=== PATIENT | female | born 1965 | race Caucasian/White ===

== ENCOUNTER 2019-06-09 03:48 | Inpatient (IN) | payer BC ==
[~2019-06-09] VITALS: Ht 167.6 cm; Wt 62.2 kg
[2019-06-09] VITALS (15 sets, daily range): BP systolic 101–148; BP diastolic 54–76
--- NOTE | 2019-06-09 03:45 | NUR ---
Patient admitted to room 424. Patient alert and oriented x 4. No family at bedside with Patient. Patient verbalized understanding of Orientation to room, bed, call light, phone and Plan of care. Call light in reach. See admission assessment/documentation.
[2019-06-09] MEDS ORDERED: DULO60CA6 PO (04:22)
[2019-06-09] MEDS ORDERED: GAB (04:23)
[2019-06-09] MEDS ORDERED: chlordiazePOXIDE HCL 25 MG CAPSULE PO SCH (05:15)
[2019-06-09] MEDS ORDERED: ONDANSETRON PF 4 MG/2 ML VIAL. IVP PRN (05:15)
[2019-06-09] MEDS: IV NORMAL SALINE 1000ML BAG 1,000 ML IV SCH ×3 (05:30→23:59)
--- NOTE | 2019-06-09 05:40 | NUR ---
Consult for Dr. Petit called to service, message left with Mihir.
[2019-06-09] MEDS ORDERED: LORazepam 1 MG TABLET PO SCH (06:00)
[2019-06-09] MEDS: MULTIVIT INFUSN,ADULT 4,VIT K 10 ML, THIAMINE INJ 100 MG, FOLIC ACID INJ 1 MG in IV NOR... IV SCH (06:23)
[2019-06-09] MEDS ORDERED: IV RINGERS,LACTATED 1000ML 1,000 ML IV SCH (07:14)
[2019-06-09] MEDS ORDERED: fentaNYL PF VIAL 100 MCG/2 ML VIAL IV PRN (07:15)
[2019-06-09] MEDS ORDERED: LIDOCAINE 1% PF 2 ML VIAL. ID PRN (07:15)
[2019-06-09] MEDS ORDERED: HYDROmorphone 2 MG/ML VIAL IV PRN (07:15)
[2019-06-09] MEDS ORDERED: PROCHLORPERAZINE 10 MG/2 ML VIAL. IV PRN (07:15)
[2019-06-09] MEDS ORDERED: ONDANSETRON PF 4 MG/2 ML VIAL. IV PRN (07:15)
[2019-06-09] MEDS ORDERED: MORPHINE SULFATE 2 MG/ML VIAL. IV PRN (07:15)
--- NOTE | 2019-06-09 07:58 | PDOC2 ---
STU DOTSON CHOIR LEADER 06/09/19 0758: CONSULT Date of Consult Date of Consult DATE: 06/09/19 TIME: 07:49 Reason for Consult Reason for Consult: Liver laceration with FB Referring Physician Referring Physician: [facility] ER Identification/Chief Complaint Chief Complaint trauma, fall with injury Source Source: Chart review, Patient History of Present Illness Reason for Visit: Large tall mirror fell on pt, reports was pinned under it. Multiple lacerations from glass. Seen in ER at [facility]--several pieces of glass removed. 2 areas radha with radha in place. CT showed FB retained in liver, sub q fat of abdomen. She is having moderate amount of pain to liver area Past Medical History Psych: Anxiety, Bipolar, Depression Rheumatologic: Rheumatoid arthritis, Other (Lupus) Past Surgical History Past Surgical History: Family History Family History: Other (noncontributory to current illness ) Social History No ALCOHOL: other (3-4 beers--3-4 times a week) Current Medications Current Medications Current Medications Sodium Chloride 1,000 ml @ 100 mls/hr Q10H IV Last administered on 06/09/19at 05:30; Start 06/09/19 at 05:30 Ondansetron HCl (Zofran) 4 mg PRN Q4HRS PRN IVP NAUSEA/VOMITING 1ST CHOICE; Start 06/09/19 at 05:15 Fentanyl Citrate (Fentanyl 2ml Vial) 50 mcg PRN Q3HRS PRN IVP SEVERE PAIN 7-10; Start 06/09/19 at 05:15 Multivitamins 10 ml/Thiamine HCl 100 mg/Folic Acid 1 mg/Sodium Chloride 1,011.2 ml @ 100 mls/ hr DAILY IV Last administered on 06/09/19at 06:23; Start 06/09/19 at 06:00; Stop 06/13/19 at 19:07 Lorazepam (Ativan) 2 mg Q6H PO ; Start 06/09/19 at 06:00; Stop 06/09/19 at 06:00; Status DC Chlordiazepoxide (Librium) 25 mg Q6H PO ; Start 06/09/19 at 05:15; Stop 06/10/19 at 11:16; Status UNV Lorazepam (Ativan Inj) 2 mg Q6HRS IVP ; Start 06/09/19 at 12:00; Stop 06/10/19 at 18:01 Ondansetron HCl (Zofran) 4 mg PRN Q6HRS PRN IV NAUSEA/VOMITING; Start 06/09/19 at 07:15; Stop 06/10/19 at 07:14 Fentanyl Citrate (Fentanyl 2ml Vial) 25 mcg PRN Q5MIN PRN IV MILD PAIN 1-3; Start 06/09/19 at 07:15; Stop 06/10/19 at 07:14 Fentanyl Citrate (Fentanyl 2ml Vial) 50 mcg PRN Q5MIN PRN IV MODERATE TO SEVERE PAIN; Start 06/09/19 at 07:15; Stop 06/10/19 at 07:14 Morphine Sulfate (Morphine Sulfate) 1 mg PRN Q10MIN PRN IV SEVERE PAIN 7-10; Start 06/09/19 at 07:15; Stop 06/10/19 at 07:14 Ringer's Solution 1,000 ml @ 30 mls/hr Q24H IV ; Start 06/09/19 at 07:14; Stop 06/09/19 at 19:13 Lidocaine HCl (Xylocaine-Mpf 1% 2ml Vial) 2 ml PRN 1X PRN ID PRIOR TO IV START; Start 06/09/19 at 07:15; Stop 06/10/19 at 07:14 Hydromorphone HCl (Dilaudid) 0.5 mg PRN Q10MIN PRN IV SEV PAIN, Second choice; Start 06/09/19 at 07:15; Stop 06/10/19 at 07:14 Prochlorperazine Edisylate (Compazine) 5 mg PACU PRN PRN IV NAUSEA, MRX1; Start 06/09/19 at 07:15; Stop 06/10/19 at 07:14 Active Scripts Active Reported [azalea] Cymbalta (Duloxetine Hcl) 60 Mg Capsule.dr 2 Cap PO DAILY Allergies Allergies: Coded Allergies: ciprofloxacin (Verified Allergy, Severe, 06/09/19) hydrocodone (Verified Allergy, Intermediate, 06/09/19) ROS General: No: Chills, Other (fevers ) PSYCHOLOGICAL ROS: YES: Anxiety; No: Depression Eyes: No Blurry vision, No Double vision HEENT: No: Heacaches, Sore Throat Hematological and Lymphatic: No: Bleeding Problems, Blood Clots Respiratory: YES: Shortness of breath; No: Cough Cardiovascular: No Chest Pain, No Palpitations Gastrointestinal: No Nausea, No Vomiting, No Diarrhea, No Constipation Genitourinary: No Dysuria, No Retention Musculoskeletal: Yes Muscle Pain; No Joint Pain Neurological: No Impaired Coord/balance, No Numbness/Tingling Skin: No Pruritus, No Rash Physical Exam General: Alert, Oriented X3, Cooperative, No acute distress HEENT: Atraumatic, PERRLA Lungs: Clear to auscultation, Normal air movement Heart: Regular rate, Normal S1, Normal S2 Abdomen: Soft, Other (TTP over RUQ, palpable mass right mid abdomen, mildly tender, 2 areas with radha in place) Extremities: No clubbing, No cyanosis Psych/Mental Status: Mental status NL, Mood NL MUSCULOSKELETAL: No deformity, No swelling Vitals VITALS Vital Signs Date Time Temp Pulse Resp B/P (MAP) Pulse Ox O2 Delivery O2 Flow Rate FiO2 06/09/19 07:00 97.8 74 16 133/59 (83) 90 Room Air 97.8 Assessment/Plan Assessment/Plan Retained FB in abdomen after trauma plan for surgical removal today BILL MARDID MD 06/09/19 1131: CONSULT Assessment/Plan Assessment/Plan Pt seen and examined by myself; 54 year old female S/P fall with mirror, multiple glass fragments removed by ER physician. Pt states pain mostly in R abdomen following accident. ER evaluation included a CT showing a foreign body in the left liver lobe and a second in the subq tissue and rectus muscles of right abdomen. PMH/PSH/ROS/SH as above; exam: alert, anxious, small abrasion of nose, lungs clear, heart RR and R, abdomen soft, tender RUQ, noticeable bulge in R abdomen inferior to umbilicus, ext neg for edema; A/P) S/P fall with mirror, 2 fragments remain, one in left liver and one in abdominal wall. Plan to OR for extraction STU DOTSON APRN Jun 09, 2019 07:58 BILL MADRID MD Jun 09, 2019 11:31
[2019-06-09 08:14] LABS: HEMATOCRIT 31.6 % (36.0-47.0); HEMOGLOBIN 10.5 g/dL (12.0-15.5); RED BLOOD COUNT 3.74 x10^6/uL (3.50-5.40); RED CELL DISTRIBUTION WIDTH 21.1 % (11.5-14.5); WHITE BLOOD COUNT 7.3 x10^3/uL (4.0-11.0)
[2019-06-09 08:24] LABS: PROTHROMBIN TIME PATIENT 14.4 SEC (11.7-14.0)
[2019-06-09 08:29] LABS: ALBUMIN 3.3 g/dL (3.4-5.0); CALCIUM 8.8 mg/dL (8.5-10.1); CREATININE 0.8 mg/dL (0.6-1.0); GFR 74.7; POTASSIUM 3.9 mmol/L (3.5-5.1); TOTAL BILIRUBIN 0.6 mg/dL (0.2-1.0); TOTAL PROTEIN 6.5 g/dL (6.4-8.2)
[2019-06-09] MEDS: fentaNYL PF VIAL 100 MCG/2 ML VIAL IVP PRN ×2 (10:40→16:47)
--- NOTE | 2019-06-09 11:08 | HP ---
ADMIT DATE: 06/09/2019 HISTORY OF PRESENT ILLNESS: The patient is a 54-year-old female patient who came to the Emergency Room of [facility], stating that she was moving mirror and tripped and it fell on top of her and she broke into so many pieces and was complaining of pain in her left rib as well as glass in her stomach and also her nose. She was found to have glass fragments sticking out of her nose and over her abdomen. The patient has obviously deep laceration, 1-2 cm laceration, one of her right pelvis area and one just above to the right of the umbilicus, approximately 10 shards of glass removed from the abdomen and nose. She does not remember when her last tetanus, but she localized pain mostly in her right upper quadrant. She was extensively investigated and the ER physician has apparently removed multiple glass shards. However, CT scan of the abdomen showed that there is a thin linear foreign body lodged in the left hepatic parenchyma. There is a tickle caliber foreign body in the right ventral pelvis and the subcutaneous fat, which distal tip terminating in the rectus abdominis muscle and therefore, the patient was transferred to [facility] for surgical consult and management. PAST MEDICAL HISTORY: Significant for depression, anxiety, rheumatoid arthritis and carpal tunnel syndrome. PAST SURGICAL HISTORY: Significant for carpal tunnel release, tooth implants and right elbow reconstruction surgery. She has also had C-sections. ALLERGIES: SHE IS ALLERGIC TO CIPROFLOXACIN AND HYDROCODONE. MEDICATIONS: She is currently on following medications: The patient is on Cymbalta, gabapentin and hydroxyzine. FAMILY HISTORY: She has 2 older sisters, but she does not keep in touch with her father, does not know her biological father and mother at the age of 74, the cause of is not clear. SOCIAL HISTORY: She is , has a son and daughter. She does not smoke, drinks alcohol, does not use any drugs. PHYSICAL EXAMINATION: GENERAL: On arrival to the Emergency Room, she looked well and was clearly in no apparent respiratory distress. No pallor, jaundice, cyanosis or thyromegaly. No jugular venous distension. No lower limb edema. VITAL SIGNS: Her heart rate was 82, blood pressure was 148/80, temperature was 98, respiratory rate was 20 and oxygen saturation was 97%. HEAD, EYES, EARS, NOSE AND THROAT: Normocephalic, atraumatic. NECK: Supple. HEART: Showed normal first and second heart sounds. No gallop, rub or murmur. CHEST: Clear to auscultation. No crepitation or rhonchi. ABDOMEN: Distended. She has right upper quadrant tenderness. No masses. No palpable pulsatile masses. She has multiple puncture wounds with glass fragments. NEUROLOGIC: She is awake, alert, responding appropriately. All cranial nerves intact. EXTREMITIES: She moves extremities without difficulty. LABORATORY DATA: Showed that her white cell count was 12,500, hemoglobin 11, hematocrit 36, MCV 85 and platelet count 315,000. Her prothrombin time, INR and aPTT are all normal. Her chemistry showed a serum sodium 139, potassium 4.2, chloride 98, bicarbonate 31, anion gap of 10, BUN 19, creatinine 0.8, estimated GFR was 75 mL per minute. Her glucose was 90, calcium was 9.1, magnesium was 2.1. Total bilirubin and alkaline phosphatase normal. AST and ALT are elevated. Total protein 7.4, albumin 4. Amylase and lipase were normal. Urinalysis was unremarkable. Toxic screen was positive for opiates, negative for all others. The blood alcohol level was less than 10. Her KUB showed there is a linear foreign body in the left ventral abdominal soft tissue close to the skin surface. There is another more inferior opacity on the lateral view in the pelvic region, although this could be artifactual. Her chest x-ray showed no radiographic evidence of acute cardiopulmonary disease. CT scan of the abdomen and pelvis showed that there is a thin linear foreign body lodged in the left hepatic parenchyma as described. There is also a thicker caliber foreign body in the right ventral pelvis and the subcutaneous tissue with distal tip terminating in the rectus abdominis muscle. ASSESSMENT AND PLAN: In summary, this is a 54-year-old female patient who was basically presented with multiple lacerations and glass foreign bodies and there was just whole inch linear foreign body in the left hepatic parenchyma and linear foreign body in the right ventral pelvis. She has anemia and elevated AST, ALT and the patient was transferred to [facility] to consult the surgical team. MACIEJ YIP MD DR: JOVANNY/danyel JOB#: [id number] / [id number]
[2019-06-09] MEDS ORDERED: ONDANSETRON PF 4 MG/2 ML VIAL. ONE (11:25)
[2019-06-09] MEDS ORDERED: LIDOCAINE 2% PF 5 ML VIAL. ONE (11:25)
[2019-06-09] MEDS ORDERED: ROCURONIUM 50 MG/5 ML VIAL. ONE (11:25)
[2019-06-09] MEDS ORDERED: DEXAMETHASONE SOD PHOS 4 MG/ML VIAL ONE (11:25)
[2019-06-09] MEDS ORDERED: PROPOFOL 20 ML IV ONE (11:25)
[2019-06-09] MEDS ORDERED: DEXAMETHASONE SOD PHOS 20 MG/5 ML VIAL. ONE (11:26)
[2019-06-09] MEDS ORDERED: SUCCINYLCHOLINE 200 MG/10 ML VIAL. ONE (11:53)
[2019-06-09] MEDS ORDERED: BUPIVACAINE-EPI 0.5%-1:200000 MPF 30 ML VIAL. ONE (12:55)
[2019-06-09] MEDS ORDERED: fentaNYL PF VIAL 100 MCG/2 ML VIAL ONE ×2 (12:58→15:01)
[2019-06-09] MEDS ORDERED: MIDAZOLAM HCL/PF 2 MG/2 ML VIAL. ONE (12:59)
[2019-06-09] MEDS ORDERED: BACITRACIN TOPICAL OINT PACKET. TP ONE (13:23)
[2019-06-09] MEDS ORDERED: SURGICEL HEMOSTAT 4X8 EACH. ONE ×2 (13:47)
[2019-06-09] MEDS ORDERED: NEOSTIGMINE METHYLSULFATE 5 MG/5 ML SYRINGE. ONE (14:19)
[2019-06-09] MEDS ORDERED: GLYCOPYRROLATE 1 MG/5 ML VIAL. ONE (14:19)
[2019-06-09] MEDS ORDERED: SEVOFLURANE 61 TO 120 MINUTES. IH ONE (14:20)
--- NOTE | 2019-06-09 14:21 | NUR ---
SW following. Discussed with RN. Pt from home. Pt having surgery today. RN advised no SW needs at this time. SW will continue to follow.
--- NOTE | 2019-06-09 14:43 | PDOC4 ---
Operative Note Operative Note Operative Note: Preoperative Diagnosis: Intraabdominal foreign body (glass fragment in left lobe of liver), abdominal wall foreign body (glass fragment) Postoperative Diagnosis: Same Procedure: Laparoscopic removal of glass fragment from liver, removal of abdominal glass fragment Surgeon: Lele Irrigator: Milton NICHOLSON Anesthesia: Gen EBL: 10 ml Specimen: Glass fragments to pathology Drains: None Complications: None Indication: The patient is a 54-year-old female who was moving a large mirror when she fell causing the mirror to shatter. Her emergency room evaluation showed numerous fragments in the skin and subcutaneous tissues. Further evaluation including a CAT scan identified a form body fragment embedded in the left lobe of the liver as well as a second fragment in the right abdominal wall. We recommend laparoscopic removal of the intra-abdominal glass fragment and removal of the abdominal wall fragment. The risks of surgery were discussed with the patient which include bleeding, infection, visceral injury, pain, anesthetic risk, open conversion, potential need for additional surgery or procedure. She understands and would like to proceed. Description: The patient was taken to the operating room and placed supine on the operating table. Gen. anesthesia was performed. The abdomen was prepped with ChloraPrep and draped in a standard surgical manner. A small supraumbilical incision was made in the skin through which a Veress needle was inserted and the pneumoperitoneum was created. A visualized 5 mm trocar was inserted and the laparoscope was introduced. Inspection of the liver did show the site of the foreign object within the left lobe. As suspected there was a thin sharp needle shaped segment of glass impaled in the liver. An 11 mm trocar was placed in the right abdomen near the expected area of the abdominal wall fragment. A 2.3 mm mini lap grasper was inserted in the right lateral abdomen. The glass fragment was extracted from the liver lobe without difficulty. There was a very slight ooze from the extraction site and a small Surgicel pack was placed on the surface. The glass fragment was placed in an endoscopic bag and extracted through the 11 mm trocar site. The remainder of the abdominal cavity was evaluated. There was no evidence of a bowel injury. In the lower abdominal sidewall we found another glass fragment. In a similar manner this was placed in an endoscopic bag and extracted. Both pieces of glass were sent to pathology. Hemostasis of the liver was good and no other normality's were seen. The pneumoperitoneum was relieved and the laparoscopic ports were removed. At the location of the 11 mm trocar site we were able to identify two additional glass fragments in the abdominal wall. They were also extracted without difficulty and sent to pathology as a specimen. The fascial defect was closed with 0 Vicryl. The incision sites were infiltrated with half percent Marcaine with epinephrine. Skin at all incisions was closed with 4-0 Monocryl. Steri-Strips and dressings were applied. BILL MADRID MD Jun 09, 2019 14:43
[2019-06-09] MEDS ORDERED: oxyCODONE/APAP 5/325 1 TAB TABLET PO PRN (14:45)
[2019-06-09 15:04] LABS: U PREG PATIENT NEGATIVE (NEG)
[2019-06-09] MEDS: fentaNYL PF VIAL 100 MCG/2 ML VIAL IV PRN ×2 (15:20→15:34)
[2019-06-09] MEDS: oxyCODONE/APAP 5/325 1 TAB TABLET PO PRN ×2 (17:32→23:58)
[2019-06-10 03:05] VITALS: BP 141/76
[2019-06-10] MEDS: fentaNYL PF VIAL 100 MCG/2 ML VIAL IVP PRN (03:17)
[2019-06-10] MEDS: oxyCODONE/APAP 5/325 1 TAB TABLET PO PRN (05:46)
[2019-06-10 07:15] VITALS: BP 117/68
[2019-06-10] MEDS: MULTIVIT INFUSN,ADULT 4,VIT K 10 ML, THIAMINE INJ 100 MG, FOLIC ACID INJ 1 MG in IV NOR... IV SCH (08:48)
[2019-06-10] MEDS ORDERED: DULoxetine HCL 30 MG CAPSULE.DR PO SCH (09:00)
--- NOTE | 2019-06-10 09:01 | NUR ---
SW following. Discussed with RN. Pt is from home. RN advised no SW needs at this time. SW will continue to follow.
[2019-06-10] MEDS: IV NORMAL SALINE 1000ML BAG 1,000 ML IV SCH (10:39)
[2019-06-10 11:05] VITALS: BP 122/77
--- NOTE | 2019-06-10 12:14 | PDOC ---
PROGRESS NOTES Subjective Subjective pt lethargic, difficult to awaken; getting significant scheduled ativan Objective Objective Vital Signs Date Time Temp Pulse Resp B/P (MAP) Pulse Ox O2 Delivery O2 Flow Rate FiO2 06/10/19 11:05 98.5 81 18 122/77 (92) 97 Room Air 98.5 06/09/19 15:05 10 Intake and Output 06/10/19 07:00 Intake Total 3551 ml Output Total 1860 ml Balance 1691 ml Intake Oral 1090 ml IV Total 2461 ml Output Urine Total 1850 ml Estimated Blood Loss 10 ml # Voids 4 Physical Exam Abdomen: Soft (incisions ok) Assessment Assessment S/P lap removal abdominal foreign bodies Plan Plan of Care no surgical issues; very lethargic likely from ativan, would consider DC sedatives Comment Review of Relevant I have reviewed the following items marcin (where applicable) has been applied. Labs Laboratory Tests Test 06/09/19 07:32 06/09/19 13:17 White Blood Count 7.3 x10^3/uL (4.0-11.0) Red Blood Count 3.74 x10^6/uL (3.50-5.40) Hemoglobin 10.5 g/dL (12.0-15.5) Hematocrit 31.6 % (36.0-47.0) Mean Corpuscular Volume 85 fL (79-100) Mean Corpuscular Hemoglobin 28 pg (25-35) Mean Corpuscular Hemoglobin Concent 33 g/dL (31-37) Red Cell Distribution Width 21.1 % (11.5-14.5) Platelet Count 269 x10^3/uL (140-400) Prothrombin Time 14.4 SEC (11.7-14.0) Prothromb Time International Ratio 1.2 (0.8-1.1) Sodium Level 141 mmol/L (136-145) Potassium Level 3.9 mmol/L (3.5-5.1) Chloride Level 102 mmol/L (98-107) Carbon Dioxide Level 33 mmol/L (21-32) Anion Gap 6 (6-14) Blood Urea Nitrogen 16 mg/dL (7-20) Creatinine 0.8 mg/dL (0.6-1.0) Estimated GFR (Cockcroft-Gault) 74.7 BUN/Creatinine Ratio 20 (6-20) Glucose Level 95 mg/dL (70-99) Calcium Level 8.8 mg/dL (8.5-10.1) Total Bilirubin 0.6 mg/dL (0.2-1.0) Aspartate Amino Transf (AST/SGOT) 79 U/L (15-37) Alanine Aminotransferase (ALT/SGPT) 76 U/L (14-59) Alkaline Phosphatase 77 U/L (46-116) Ammonia 11 mcmol/L (11-34) Total Protein 6.5 g/dL (6.4-8.2) Albumin 3.3 g/dL (3.4-5.0) Albumin/Globulin Ratio 1.0 (1.0-1.7) Urine Test Negative (NEG) Laboratory Tests Test 06/09/19 13:17 Urine Test Negative (NEG) Medications Current Medications Sodium Chloride 1,000 ml @ 100 mls/hr Q10H IV Last administered on 06/09/19at 23:59; Start 06/09/19 at 05:30 Ondansetron HCl (Zofran) 4 mg PRN Q4HRS PRN IVP NAUSEA/VOMITING 1ST CHOICE; Start 06/09/19 at 05:15 Fentanyl Citrate (Fentanyl 2ml Vial) 50 mcg PRN Q3HRS PRN IVP SEVERE PAIN 7-10 Last administered on 06/10/19at 03:17; Start 06/09/19 at 05:15 Multivitamins 10 ml/Thiamine HCl 100 mg/Folic Acid 1 mg/Sodium Chloride 1,011.2 ml @ 100 mls/ hr DAILY IV Last administered on 06/10/19at 08:48; Start 06/09/19 at 06:00; Stop 06/13/19 at 19:07 Lorazepam (Ativan) 2 mg Q6H PO ; Start 06/09/19 at 06:00; Stop 06/09/19 at 06:00; Status DC Chlordiazepoxide (Librium) 25 mg Q6H PO ; Start 06/09/19 at 05:15; Stop 06/10/19 at 11:16; Status UNV Lorazepam (Ativan Inj) 2 mg Q6HRS IVP Last administered on 06/10/19at 05:45; Start 06/09/19 at 12:00; Stop 06/10/19 at 18:01 Ondansetron HCl (Zofran) 4 mg PRN Q6HRS PRN IV NAUSEA/VOMITING; Start 06/09/19 at 07:15; Stop 06/10/19 at 07:14; Status DC Fentanyl Citrate (Fentanyl 2ml Vial) 25 mcg PRN Q5MIN PRN IV MILD PAIN 1-3; Start 06/09/19 at 07:15; Stop 06/10/19 at 07:14; Status DC Fentanyl Citrate (Fentanyl 2ml Vial) 50 mcg PRN Q5MIN PRN IV MODERATE TO SEVERE PAIN Last administered on 06/09/19at 15:20; Start 06/09/19 at 07:15; Stop 06/10/19 at 07:14; Status DC Morphine Sulfate (Morphine Sulfate) 1 mg PRN Q10MIN PRN IV SEVERE PAIN 7-10; Start 06/09/19 at 07:15; Stop 06/10/19 at 07:14; Status DC Ringer's Solution 1,000 ml @ 30 mls/hr Q24H IV ; Start 06/09/19 at 07:14; Stop 06/09/19 at 19:13; Status DC Lidocaine HCl (Xylocaine-Mpf 1% 2ml Vial) 2 ml PRN 1X PRN ID PRIOR TO IV START; Start 06/09/19 at 07:15; Stop 06/10/19 at 07:14; Status DC Hydromorphone HCl (Dilaudid) 0.5 mg PRN Q10MIN PRN IV SEV PAIN, Second choice; Start 06/09/19 at 07:15; Stop 06/10/19 at 07:14; Status DC Prochlorperazine Edisylate (Compazine) 5 mg PACU PRN PRN IV NAUSEA, MRX1; Start 06/09/19 at 07:15; Stop 06/10/19 at 07:14; Status DC Cefazolin Sodium/ Dextrose 50 ml @ 100 mls/hr 1X PREOP PRN IV cfo controller to or; Start 06/09/19 at 08:00; Stop 06/10/19 at 18:00 Lidocaine HCl (Lidocaine Pf 2% Vial) 5 ml STK-MED ONCE .ROUTE ; Start 06/09/19 at 11:25; Stop 06/09/19 at 11:26; Status DC Propofol 20 ml @ As Directed STK-MED ONCE IV ; Start 2/18/20 at 11:25; Stop 06/09/19 at 11:26; Status DC Ondansetron HCl (Zofran) 4 mg STK-MED ONCE .ROUTE ; Start 06/09/19 at 11:25; Stop 06/09/19 at 11:26; Status DC Dexamethasone Sodium Phosphate (Decadron) 4 mg STK-MED ONCE .ROUTE ; Start 06/09/19 at 11:25; Stop 06/09/19 at 11:26; Status DC Rocuronium Taylor (Zemuron) 50 mg STK-MED ONCE .ROUTE ; Start 06/09/19 at 11:25; Stop 06/09/19 at 11:26; Status DC Dexamethasone Sodium Phosphate (Decadron) 20 mg STK-MED ONCE .ROUTE ; Start 06/09/19 at 11:26; Stop 06/09/19 at 11:27; Status DC Succinylcholine Chloride (Anectine) 200 mg STK-MED ONCE .ROUTE ; Start 06/09/19 at 11:53; Stop 06/09/19 at 11:54; Status DC Bupivacaine HCl/ Epinephrine Bitart (Sensorcain-Epi 0.5%-1:461410 Mpf) 30 ml STK-MED ONCE .ROUTE Last administered on 06/09/19at 13:52; Start 06/09/19 at 12:55; Stop 06/09/19 at 12:55; Status DC Fentanyl Citrate (Fentanyl 2ml Vial) 100 mcg STK-MED ONCE .ROUTE ; Start 06/09/19 at 12:58; Stop 06/09/19 at 12:59; Status DC Midazolam HCl (Versed) 2 mg STK-MED ONCE .ROUTE ; Start 06/09/19 at 12:59; Stop 06/09/19 at 12:59; Status DC Bacitracin (Bacitracin Zinc Oint Pkt) 1 pkt STK-MED ONCE TP ; Start 06/09/19 at 13:23; Stop 06/09/19 at 13:23; Status DC Cellulose (Surgicel Hemostat 4x8) 1 each STK-MED ONCE .ROUTE Last administered on 06/09/19at 13:53; Start 06/09/19 at 13:47; Stop 06/09/19 at 13:47; Status DC Cellulose (Surgicel Hemostat 4x8) 1 each STK-MED ONCE .ROUTE ; Start 06/09/19 at 13:47; Stop 06/09/19 at 13:47; Status DC Neostigmine Taylor (Neostigmine Methylsulfate) 5 mg STK-MED ONCE .ROUTE ; Start 06/09/19 at 14:19; Stop 06/09/19 at 14:19; Status DC Glycopyrrolate (Robinul) 1 mg STK-MED ONCE .ROUTE ; Start 06/09/19 at 14:19; Stop 06/09/19 at 14:19; Status DC Sevoflurane (Ultane) 60 ml STK-MED ONCE IH ; Start 06/09/19 at 14:20; Stop 06/09/19 at 14:21; Status DC Oxycodone/ Acetaminophen (Percocet 5/325) 1 tab PRN Q4HRS PRN PO MODERATE PAIN; Start 06/09/19 at 14:45 Fentanyl Citrate (Fentanyl 2ml Vial) 100 mcg STK-MED ONCE .ROUTE ; Start 06/09/19 at 15:01; Stop 06/09/19 at 15:01; Status DC Duloxetine HCl (Cymbalta) 120 mg DAILY PO Last administered on 06/10/19at 08:48; Start 06/10/19 at 09:00 Oxycodone/ Acetaminophen (Percocet 5/325) 2 tab PRN Q4HRS PRN PO SEVERE PAIN Last administered on 06/10/19at 05:46; Start 06/09/19 at 16:45 Active Scripts Active Reported [azalea] Cymbalta (Duloxetine Hcl) 60 Mg Capsule.dr 2 Cap PO DAILY Vitals/I & O Vital Sign - Last 24 Hours 06/09/19 06/09/19 06/09/19 06/09/19 12:23 14:35 14:45 14:50 Temp 97.8 97.2 97.2 97.8 97.2 97.2 Pulse 74 75 73 Resp 22 18 16 B/P (MAP) 159/70 130/60 130/52 Pulse Ox 99 100 100 O2 Delivery Room Air Room Air Mask Simple Mask O2 Flow Rate 10 10 10 06/09/19 06/09/19 06/09/19 06/09/19 15:05 15:20 15:20 15:34 Temp 97.2 97.2 97.2 97.2 Pulse 75 72 Resp 20 21 20 21 B/P (MAP) 141/65 139/58 Pulse Ox 100 96 96 96 O2 Delivery Simple Mask Room Air Room Air Room Air O2 Flow Rate 10 06/09/19 06/09/19 06/09/19 06/09/19 15:35 15:50 16:15 16:30 Temp 97.2 97.3 97.2 97.3 Pulse 70 72 72 73 Resp 19 20 B/P (MAP) 127/54 127/66 117/59 (78) 119/54 (75) Pulse Ox 94 95 92 O2 Delivery Room Air Room Air 06/09/19 06/09/19 06/09/19 06/09/19 16:45 16:47 17:00 17:15 Pulse 78 80 77 Resp 16 B/P (MAP) 130/61 (84) 148/55 (86) 126/66 (86) Pulse Ox 90 90 87 O2 Delivery Room Air 06/09/19 06/09/19 06/09/19 06/09/19 17:31 17:32 17:45 18:09 Pulse 76 72 Resp 16 16 B/P (MAP) 114/54 (74) 126/66 (86) Pulse Ox 85 93 O2 Delivery Room Air Room Air Room Air 06/09/19 06/09/19 06/09/19 06/09/19 19:00 19:08 20:00 20:09 Temp 98.0 98.0 Pulse 82 76 Resp 14 20 B/P (MAP) 101/59 (73) 117/63 (81) Pulse Ox 94 92 O2 Delivery Room Air Room Air Room Air Room Air 06/09/19 06/09/19 06/09/19 06/09/19 21:08 22:15 23:35 23:58 Temp 97.8 98.0 97.8 98.0 Pulse 77 71 69 Resp 20 18 16 B/P (MAP) 119/67 (84) 127/58 (81) 124/74 (91) Pulse Ox 96 98 O2 Delivery Room Air Room Air Room Air 06/10/19 06/10/19 06/10/19 06/10/19 01:00 03:05 03:17 03:48 Temp 98.0 98.0 Pulse 78 Resp 16 20 16 14 B/P (MAP) 141/76 (97) Pulse Ox 99 O2 Delivery Room Air Room Air Room Air Room Air 06/10/19 06/10/19 06/10/19 06/10/19 05:46 06:55 07:15 08:00 Temp 98.0 98.0 Pulse 73 Resp 14 14 20 B/P (MAP) 117/68 (84) Pulse Ox 96 O2 Delivery Room Air Room Air Room Air Room Air 06/10/19 11:05 Temp 98.5 98.5 Pulse 81 Resp 18 B/P (MAP) 122/77 (92) Pulse Ox 97 O2 Delivery Room Air Intake and Output 06/09/19 06/09/19 06/10/19 15:00 23:00 07:00 Intake Total 1050 ml 500 ml 2001 ml Output Total 560 ml 1300 ml Balance 490 ml 500 ml 701 ml BILL MADRID MD Jun 10, 2019 12:14
[2019-06-10] MEDS ORDERED: HYDR-2761 PO (13:40)
--- NOTE | 2019-06-10 13:54 | NUR ---
Discharge instructions and belongings reviewed with patient, verbalized understanding. Patient was escorted out via wheelchair by Silva KENDALL accompanied by her Xavier.
--- NOTE | 2019-06-11 14:07 | PATHOLOGY ---
[facility] Accession Number: [id number] . 01 Material submitted: . abdomen - ABDOMINAL FOREIGN BODY . 01 Clinical history: . Retained foreign body in abdomen after trauma . 02 Diagnosis: Foreign body (glass), clinically from abdomen (Gross only). (JPM:[facility] 06/11/2019) [facility] 06/11/2019 1339 Local . 02 Electronically signed: . Tony Gonsales MD, Pathologist NPI- [id number] . 01 Gross description: . The specimen is received fresh, labeled "Jody Nolasco, abdominal foreign object". Received are multiple segments of glass ranging in size from 0.4 x 0.2 x 0.1 to 2.1 x 0.2 x 0.1 cm in greatest dimensions. Gross photographs are taken. Sections are not submitted. (CAA; 06/10/2019) [facility] 06/10/2019 1904 Local . 02 Pathologist provided ICD-10: Z18.81 . 02 CPT . 942956 Specimen Comment: A courtesy copy of this report has been sent to [phone] Specimen Comment: Report sent to Specimen Comment: A duplicate report has been generated due to demographic updates. Performed at: 01 [facility] [address], [place], [place] [id number] MD Jerson Tobias MD Phone: [phone] Performed at: 02 [facility] [address] [place], [place] [id number] MD Tony Gonsales MD Phone: [phone]
== END 2019-06-10 14:29 | disposition home or self-care (01) | DRG 407 ==
LOC: 4 NORTH 03:48
PROVIDERS: ADMIT Internal Medicine; ATTEND Internal Medicine
PROC: 0FC Hepatobiliary System and Pancreas, Extirpation (ICD-10-PCS; principal; 2019-06-09 13:00)
DX: S36.113A Laceration of liver, unspecified degree, initial encounter (principal); D64.9 Anemia, unspecified; M06.9 Rheumatoid arthritis, unspecified; W01.0XXA Fall on same level from slipping, tripping and stumbling without subsequent striking against object, initial encounter; W25.XXXA Contact with sharp glass, initial encounter; F32.9 Major depressive disorder, single episode, unspecified; Z88.8 Allergy status to other drugs, medicaments and biological substances; W45.8XXA Other foreign body or object entering through skin, initial encounter; Y93.89 Activity, other specified; Y92.89 Other specified places as the place of occurrence of the external cause; Y99.8 Other external cause status
CPT/HCPCS: 36415; 80053; 81025; 82140; 85027; 85610; 88300; A7015; J0330; J1100; J2001; J2060; J2250; J2405; J2704; J2710; J3010; J3490; J7030; J7120; G0378

== ENCOUNTER 2019-06-13 18:29 | Inpatient (IN) | payer BC ==
[~2019-06-13] VITALS: Ht 167.6 cm; Wt 56.8 kg
[~2019-06-13 18:29] MED LIST: DULO60CA6 PO; GAB; HYDR-2761 PO
[2019-06-13] MEDS ORDERED: IV NORMAL SALINE 1000ML BAG 1,000 ML IV SCH (18:50)
[2019-06-13 19:02] LABS: BASO % 1 % (0-3); EOS # 0.2 x10^3/uL (0.0-0.7); EOS % 3 % (0-3); HEMATOCRIT 30.8 % (36.0-47.0); HEMOGLOBIN 10.2 g/dL (12.0-15.5); LYMPH # 0.6 x10^3/uL (1.0-4.8); LYMPH % 7 % (24-48); MEAN CORPUSCULAR HEMOGLOBIN 29 pg (25-35); MEAN CORPUSCULAR HGB CONC 33 g/dL (31-37); MEAN CORPUSCULAR VOLUME 86 fL (79-100); MONO # 0.8 x10^3/uL (0.0-1.1); MONO % 9 % (0-9); NEUT % 81 % (31-73); PLATELET COUNT 285 x10^3/uL (140-400); RED BLOOD COUNT 3.59 x10^6/uL (3.50-5.40); RED CELL DISTRIBUTION WIDTH 21.5 % (11.5-14.5); WHITE BLOOD COUNT 8.7 x10^3/uL (4.0-11.0)
[2019-06-13 19:11] LABS: CALCIUM 8.5 mg/dL (8.5-10.1); CREATININE 0.8 mg/dL (0.6-1.0); GFR 74.7
[2019-06-13 19:17] LABS: ALBUMIN 3.2 g/dL (3.4-5.0); PROTHROMBIN TIME PATIENT 13.4 SEC (11.7-14.0); TOTAL BILIRUBIN 0.5 mg/dL (0.2-1.0); TOTAL PROTEIN 6.5 g/dL (6.4-8.2)
[2019-06-13 19:19] LABS: BILIRUBIN,URINE NEGATIVE (NEG); CLARITY,URINE CLEAR; COLOR,URINE YELLOW; NITRITE,URINE NEGATIVE (NEG); PH,URINE 6.5; PROTEIN,URINE NEGATIVE (NEG-TRACE); UROBILINOGEN,URINE 0.2 mg/dL (0.2 mg/dL)
[2019-06-13 19:26] LABS: BARBITURATES NEG (NEG); BENZODIAZEPINES NEG (NEG); CANNABINOIDS NEG (NEG); COCAINE NEG (NEG); METHADONE NEG (NEG); OPIATES POS (NEG); PHENCYCLIDINE NEG (NEG)
[2019-06-13 19:28] LABS: AMPHETAMINE/METHAMPHETAMINE NEG (NEG)
[2019-06-13 19:30] LABS: BACTERIA,URINE FEW /HPF (0-FEW); SQUAMOUS EPITHELIAL CELL,UR FEW /LPF
[2019-06-13] MEDS ORDERED: CONTRAST GIVEN. MC PRN (19:30)
[2019-06-13] MEDS ORDERED: ONDANSETRON PF 4 MG/2 ML VIAL. IV ONE (19:30)
[2019-06-13] MEDS ORDERED: fentaNYL PF VIAL 100 MCG/2 ML VIAL IV ONE (19:30)
[2019-06-13] MEDS ORDERED: IOHEXOL 300 MG/ML 100ML VIAL. IV ONE (19:45)
--- NOTE | 2019-06-13 20:03 | PHYS DOC ---
Past Medical History Past Medical History: Anxiety, Arthritis, Depression, Other Additional Past Medical Histor: carpal tunnel Past Surgical History: Oophorectomy, Other Additional Past Surgical Histo: laproscopy for liver lac, uterine ablation, rt oopherectomy Smoking Status: Never Smoker Alcohol Use: Occasionally Social History Narrative: prescribed oxycodone Adult General Chief Complaint Chief Complaint: MECHANICAL FALL HPI HPI Patient is a 54 year old with history of depression and anxiety, arthritis, recent hospitalization 6 days ago with liver laceration related to broken mirror who presents with complaining of a fall and injury to her abdomen. Patient states she was caring a large pack of old [employer] video tapes down stairs around 3 AM and lost her balance and had a fall from 12-15 stairs and does not remember what happened thereafter started with possible loss of consciousness. Patient states she had 2 areas of mild bleeding in her head and ecchymosis of the abdominal wall with abdominal pain and rated her pain 10 over 10. Patient denies nausea vomiting, constipation, urinary symptom except for dark colored urine, fever and chills, chest pain and shortness of breath. Patient had flatus today. Review of Systems Review of Systems Constitutional: Denies fever or chills [] Eyes: Denies change in visual acuity, redness, or eye pain [] HENT: Denies nasal congestion or sore throat [] Respiratory: Denies cough or shortness of breath [] Cardiovascular: No additional information not addressed in HPI [] GI: Reports abdominal pain, denies nausea, vomiting, bloody stools or diarrhea [] : Denies dysuria or hematuria [] Musculoskeletal: Denies back pain or joint pain [] Integument: Denies rash or skin lesions [] Neurologic: Denies headache, focal weakness or sensory changes [] Endocrine: Denies polyuria or polydipsia [] All other systems were reviewed and found to be within normal limits, except as documented in this note. Current Medications Current Medications Current Medications Medications (Trade) Dose Ordered Sig/Betito Start Time Stop Time Status Last Admin Dose Admin Fentanyl Citrate (Fentanyl 2ml Vial) 50 mcg 1X ONCE 06/13/19 19:30 06/13/19 19:31 DC 06/13/19 19:34 50 MCG Info (CONTRAST GIVEN -- Rx MONITORING) 1 each PRN DAILY PRN 06/13/19 19:30 06/15/19 19:29 Iohexol (Omnipaque 300 Mg/ml) 75 ml 1X ONCE 06/13/19 19:45 06/13/19 19:46 DC 06/13/19 19:30 75 ML Ondansetron HCl (Zofran) 4 mg 1X ONCE 06/13/19 19:30 06/13/19 19:31 DC 06/13/19 19:33 4 MG Sodium Chloride 1,000 ml @ 1,000 mls/hr Q1H 06/13/19 18:50 06/13/19 19:49 DC 06/13/19 19:33 1,000 MLS/HR Allergies Allergies Allergies Coded Allergies Type Severity Reaction Last Updated Verified ciprofloxacin Allergy Severe 06/09/19 Yes Physical Exam Physical Exam Constitutional: Well nourished, mild distress, non-toxic appearance, anxious. [] HENT: Normocephalic, 2 areas of superficial abrasion of frontal scalp without active bleeding, bilateral external ears normal, oropharynx moist, no oral exudates, nose normal. [] Eyes: PERRLA, EOMI, conjunctiva normal, no discharge. [] Neck: Normal range of motion, no tenderness, supple, no stridor. [] Cardiovascular:Heart rate regular rhythm, no murmur [] Lungs & Thorax: Bilateral breath sounds clear to auscultation [] Abdomen: Contusion of right upper quadrant area with marked tenderness, clean surgical wound, bowel sounds normal, soft, no masses, no pulsatile masses. [] Skin: Warm, dry, no erythema, no rash. [] Back: No tenderness, no CVA tenderness. [] Extremities: No tenderness, no cyanosis, no clubbing, ROM intact, no edema. [] Neurologic: Alert and oriented X 3, normal motor function, normal sensory function, no focal deficits noted. [] Psychologic: Affect anxious, judgement normal, mood normal. [] Current Patient Data Vital Signs Vital Signs Date Time Temp Pulse Resp B/P (MAP) Pulse Ox O2 Delivery O2 Flow Rate FiO2 06/13/19 20:00 88 97 06/13/19 19:34 16 Room Air 06/13/19 18:35 100.0 137/95 (109) 100.0 Lab Values Laboratory Tests Test 06/13/19 18:40 06/13/19 19:00 06/13/19 19:05 06/13/19 19:07 White Blood Count 8.7 x10^3/uL (4.0-11.0) Red Blood Count 3.59 x10^6/uL (3.50-5.40) Hemoglobin 10.2 g/dL (12.0-15.5) L Hematocrit 30.8 % (36.0-47.0) L Mean Corpuscular Volume 86 fL (79-100) Mean Corpuscular Hemoglobin 29 pg (25-35) Mean Corpuscular Hemoglobin Concent 33 g/dL (31-37) Red Cell Distribution Width 21.5 % (11.5-14.5) H Platelet Count 285 x10^3/uL (140-400) Neutrophils (%) (Auto) 81 % (31-73) H Lymphocytes (%) (Auto) 7 % (24-48) L Monocytes (%) (Auto) 9 % (0-9) Eosinophils (%) (Auto) 3 % (0-3) Basophils (%) (Auto) 1 % (0-3) Neutrophils # (Auto) 7.0 x10^3/uL (1.8-7.7) Lymphocytes # (Auto) 0.6 x10^3/uL (1.0-4.8) L Monocytes # (Auto) 0.8 x10^3/uL (0.0-1.1) Eosinophils # (Auto) 0.2 x10^3/uL (0.0-0.7) Basophils # (Auto) 0.0 x10^3/uL (0.0-0.2) Platelet Estimate Adequate (ADEQUATE) Polychromasia Slight Microcytosis Mod Macrocytosis Slight Prothrombin Time 13.4 SEC (11.7-14.0) Prothrombin Time INR 1.1 (0.8-1.1) Activated Partial Thromboplast Time 27 SEC (24-38) Sodium Level 138 mmol/L (136-145) Potassium Level 4.0 mmol/L (3.5-5.1) Chloride Level 100 mmol/L (98-107) Carbon Dioxide Level 29 mmol/L (21-32) Anion Gap 9 (6-14) Blood Urea Nitrogen 13 mg/dL (7-20) Creatinine 0.8 mg/dL (0.6-1.0) Estimated GFR (Cockcroft-Gault) 74.7 BUN/Creatinine Ratio 16 (6-20) Glucose Level 102 mg/dL (70-99) H Calcium Level 8.5 mg/dL (8.5-10.1) Total Bilirubin 0.5 mg/dL (0.2-1.0) Aspartate Amino Transferase (AST) 34 U/L (15-37) Alanine Aminotransferase (ALT) 56 U/L (14-59) Alkaline Phosphatase 85 U/L (46-116) Total Protein 6.5 g/dL (6.4-8.2) Albumin 3.2 g/dL (3.4-5.0) L Albumin/Globulin Ratio 1.0 (1.0-1.7) Amylase Level 44 U/L (25-115) Lipase 99 U/L (73-393) Ethyl Alcohol Level < 10 mg/dL (0-10) Lactic Acid Level 1.6 mmol/L (0.4-2.0) Urine Collection Type Unknown Urine Color Yellow Urine Clarity Clear Urine pH 6.5 Urine Specific [place] 1.020 Urine Protein Negative mg/dL (NEG-TRACE) Urine Glucose (UA) Negative mg/dL (NEG) Urine Ketones (Stick) Negative mg/dL (NEG) Urine Blood Negative (NEG) Urine Nitrite Negative (NEG) Urine Bilirubin Negative (NEG) Urine Urobilinogen Dipstick 0.2 mg/dL (0.2 mg/dL) Urine Leukocyte Esterase Small (NEG) Urine RBC 1-2 /HPF (0-2) Urine WBC 5-10 /HPF (0-4) Urine Squamous Epithelial Cells Few /LPF Urine Bacteria Few /HPF (0-FEW) Urine Opiates Screen Pos (NEG) Urine Methadone Screen Neg (NEG) Urine Barbiturates Neg (NEG) Urine Phencyclidine Screen Neg (NEG) Urine Amphetamine/Methamphetamine Neg (NEG) Urine Benzodiazepines Screen Neg (NEG) Urine Cocaine Screen Neg (NEG) Urine Cannabinoids Screen Neg (NEG) Urine Ethyl Alcohol Neg (NEG) POC Urine HCG, Qualitative Hcg negative (Negative) Laboratory Tests 06/13/19 18:40 Laboratory Tests 06/13/19 18:40 EKG EKG [] Radiology/Procedures Radiology/Procedures [facility] [address] [place], [place] [id number] IMAGING REPORT Signed PATIENT: DARIUS BURR ACCOUNT: [id number] : 1965 LOCATION: ER AGE: 54 SEX: F EXAM STATUS: PRE ER ORD. PHYSICIAN: MATTHEW COLEMAN MD REASON: fall, recent abd surgery, OMNI 300, 75 ML IV PROCEDURE: CT CHEST ABD PELVIS W/CONTRAST EXAM: CT Head without IV contrast INDICATION: Fall. TECHNIQUE: Multi-detector row CT images were obtained of the head without the use of IV contrast. All CT scans performed at this facility utilize dose optimization techniques as appropriate to the exam, including the following: Automated exposure control and adjustment of the mA and/or KV according to patient size (this includes techniques or standardized protocols for targeted exams where dose is indication/reason for exam). COMPARISON: None FINDINGS: BRAIN PARENCHYMA: No evidence of acute intraparenchymal hemorrhage or infarct. No abnormal parenchymal density or mass. VENTRICLES & EXTRA-AXIAL SPACES: Ventricles are within normal limits. Basilar cisterns are patent. No pathologic extra-axial fluid collection or mass. ORBITS: Orbital contents are unremarkable. SINUSES: Visualized paranasal sinuses and mastoid air cells are clear. OSSEOUS & SOFT TISSUES: Calvarium and skull base are intact. IMPRESSION: Normal CT of the head without contrast. EXAM: CT Cervical Spine without IV contrast INDICATION: Fall. Recent abdominal surgery. TECHNIQUE: Multi-detector row CT images were obtained through the cervical spine without the use of IV contrast. Post-processing sagittal and coronal reconstructed images were obtained for interpretation. All CT scans performed at this facility utilize dose optimization techniques as appropriate to the exam, including the following: Automated exposure control and adjustment of the mA and/or KV according to patient size (this includes techniques or standardized protocols for targeted exams where dose is indication/reason for exam). COMPARISON: None FINDINGS: CRANIOCERVICAL JUNCTION: Unremarkable. ALIGNMENT: There is reversal normal cervical lordosis, apex at C5. Minimal anterolisthesis of C3 on C4 is present. OSSEOUS: No evidence of fracture or bone destruction. DISC SPACES: Disc space narrowing most conspicuously at C5-C6 and C6-C7 is present. FACET JOINTS: Facet hypertrophic change is present, most conspicuously on the right at C3-C4 and on the left at C7-T1. No jumped facets or fractures are identified. SPINAL CANAL: Unremarkable. NEUROFORAMINA: Unremarkable. SOFT TISSUES: Unremarkable. IMPRESSION: C-spine degenerative change with reversal of normal lordosis in the mid cervical spine at C5-C6 but no acute traumatic findings identified. EXAM: CT Chest, Abdomen, and Pelvis with IV contrast INDICATION: Fall, recent abdominal surgery. TECHNIQUE: Multi-detector row CT images were acquired from the thoracic inlet through the ischial tuberosities with the use of IV contrast. Sagittal and coronal images were acquired from the transaxial data. All CT scans performed at this facility utilize dose optimization techniques as appropriate to the exam, including the following: Automated exposure control and adjustment of the mA and/or KV according to patient size (this includes techniques or standardized protocols for targeted exams where dose is indication/reason for exam). IV CONTRAST: Administered ORAL CONTRAST: Not administered. COMPARISON: None FINDINGS: CHEST: CARDIOVASCULAR: Unremarkable MEDIASTINUM & LAURA: No adenopathy or masses. Mild apparent wall thickening in the distal thoracic esophagus is present. LUNGS: No pulmonary infiltrate, nodule, or other focal abnormality. PLEURAL SPACE: No pleural effusions or pneumothorax. OSSEOUS & SOFT TISSUE: Bilateral breast implants. ABDOMEN/PELVIS: LIVER: Unremarkable BILIARY SYSTEM: Gallbladder is unremarkable. Bile ducts are not dilated. PANCREAS: Unremarkable SPLEEN: Unremarkable ADRENALS: Unremarkable KIDNEYS & URETERS: Unremarkable BLADDER: Unremarkable REPRODUCTIVE ORGANS: Unremarkable GASTROINTESTINAL: The stomach, small bowel, and colon are unremarkable. The appendix is normal. MESENTERY/PERITONEUM/RETROPERITONEUM: Minimal mesenteric edema. VASCULAR: Unremarkable LYMPH NODES: No adenopathy Course & Med Decision Making Course & Med Decision Making Pertinent Labs and Imaging studies reviewed. (See chart for details) Evaluation of patient in ER showed 54-year-old female patient with history of recent abdominal laparoscopic surgery and complaining of another fall and injury to abdomen. Patient had unremarkable CT abdomen and pelvis and labs except for UTI. On-call surgeon Dr. Katz was consulted at 2024 and agreed with observation of patient overnight.Patient requiring admission for further evaluation and treatment. Discussed with Dr. Morales who is in agreement with admission. Discussed findings and plan with patient and family, who acknowledge understanding and agreement. Dragon Disclaimer Dragon Disclaimer This electronic medical record was generated, in whole or in part, using a voice recognition dictation system. Departure Departure Impression: Primary Impression: Injury of abdominal wall Disposition: 09 ADMITTED INPATIENT (at 2032) Condition: IMPROVED Referrals: NO PCP (PCP) Problem Qualifiers Primary Impression: Injury of abdominal wall Encounter type: initial encounter Qualified Codes: S39.91XA - Unspecified injury of abdomen, initial encounter MATTHEW COLEMAN MD Jun 13, 2019 20:03
[2019-06-13 20:15] LABS: PLT ESTIMATE ADEQUATE (ADEQUATE)
[2019-06-13 20:16] LABS: MICROCYTOSIS MOD
[2019-06-13 20:20] LABS: POLYCHROMASIA SLIGHT
--- NOTE | 2019-06-13 20:22 | RAD ---
EXAM: CT Head without IV contrast INDICATION: Fall. TECHNIQUE: Multi-detector row CT images were obtained of the head without the use of IV contrast. All CT scans performed at this facility utilize dose optimization techniques as appropriate to the exam, including the following: Automated exposure control and adjustment of the mA and/or KV according to patient size (this includes techniques or standardized protocols for targeted exams where dose is indication/reason for exam). COMPARISON: None FINDINGS: BRAIN PARENCHYMA: No evidence of acute intraparenchymal hemorrhage or infarct. No abnormal parenchymal density or mass. VENTRICLES & EXTRA-AXIAL SPACES: Ventricles are within normal limits. Basilar cisterns are patent. No pathologic extra-axial fluid collection or mass. ORBITS: Orbital contents are unremarkable. SINUSES: Visualized paranasal sinuses and mastoid air cells are clear. OSSEOUS & SOFT TISSUES: Calvarium and skull base are intact. IMPRESSION: Normal CT of the head without contrast. EXAM: CT Cervical Spine without IV contrast INDICATION: Fall. Recent abdominal surgery. TECHNIQUE: Multi-detector row CT images were obtained through the cervical spine without the use of IV contrast. Post-processing sagittal and coronal reconstructed images were obtained for interpretation. All CT scans performed at this facility utilize dose optimization techniques as appropriate to the exam, including the following: Automated exposure control and adjustment of the mA and/or KV according to patient size (this includes techniques or standardized protocols for targeted exams where dose is indication/reason for exam). COMPARISON: None FINDINGS: CRANIOCERVICAL JUNCTION: Unremarkable. ALIGNMENT: There is reversal normal cervical lordosis, apex at C5. Minimal anterolisthesis of C3 on C4 is present. OSSEOUS: No evidence of fracture or bone destruction. DISC SPACES: Disc space narrowing most conspicuously at C5-C6 and C6-C7 is present. FACET JOINTS: Facet hypertrophic change is present, most conspicuously on the right at C3-C4 and on the left at C7-T1. No jumped facets or fractures are identified. SPINAL CANAL: Unremarkable. NEUROFORAMINA: Unremarkable. SOFT TISSUES: Unremarkable. IMPRESSION: C-spine degenerative change with reversal of normal lordosis in the mid cervical spine at C5-C6 but no acute traumatic findings identified. EXAM: CT Chest, Abdomen, and Pelvis with IV contrast INDICATION: Fall, recent abdominal surgery. TECHNIQUE: Multi-detector row CT images were acquired from the thoracic inlet through the ischial tuberosities with the use of IV contrast. Sagittal and coronal images were acquired from the transaxial data. All CT scans performed at this facility utilize dose optimization techniques as appropriate to the exam, including the following: Automated exposure control and adjustment of the mA and/or KV according to patient size (this includes techniques or standardized protocols for targeted exams where dose is indication/reason for exam). IV CONTRAST: Administered ORAL CONTRAST: Not administered. COMPARISON: None FINDINGS: CHEST: CARDIOVASCULAR: Unremarkable MEDIASTINUM & LAURA: No adenopathy or masses. Mild apparent wall thickening in the distal thoracic esophagus is present. LUNGS: No pulmonary infiltrate, nodule, or other focal abnormality. PLEURAL SPACE: No pleural effusions or pneumothorax. OSSEOUS & SOFT TISSUE: Bilateral breast implants. ABDOMEN/PELVIS: LIVER: Unremarkable BILIARY SYSTEM: Gallbladder is unremarkable. Bile ducts are not dilated. PANCREAS: Unremarkable SPLEEN: Unremarkable ADRENALS: Unremarkable KIDNEYS & URETERS: Unremarkable BLADDER: Unremarkable REPRODUCTIVE ORGANS: Unremarkable GASTROINTESTINAL: The stomach, small bowel, and colon are unremarkable. The appendix is normal. MESENTERY/PERITONEUM/RETROPERITONEUM: Minimal mesenteric edema. VASCULAR: Unremarkable LYMPH NODES: No adenopathy OSSEOUS & SOFT TISSUES: Mild asymmetric right-sided subcutaneous fat stranding just below the umbilicus. Dense sclerosis in the inferior left pubic ramus, favored to be a large bone island. Tiny omental fat-containing hernia deep to the patient's staple laparoscopic incision. This has an 8 mm neck and contains just fat.. An 8 mm long calcific density is present in the subcutaneous fat inferior and to the right of the patient's umbilicus approximately 2.8 cm away at the 7:00 position. This is favored to be fat necrosis. Correlate clinically. IMPRESSION: 1. No acute traumatic findings in the chest. There is incidental possible mild distal thoracic esophagitis. Correlate clinically. 2. Mild mesenteric edema could related to recent surgery. No acute findings otherwise noted besides ventral abdominal wall subcutaneous fat stranding that could reflect posttraumatic changes. FOR INTERNAL CODING PURPOSES Critical result: Findings discussed with MATTHEW COLEMAN at 06/13/2019 8:17 PM. RESULT CODE: (C) Electronically signed by: Qian Alanis MD (06/13/2019 8:19 PM) [facility]
[2019-06-13] MEDS ORDERED: IV NORMAL SALINE 1000ML BAG 1,000 ML IV ONE (20:45)
[2019-06-13] MEDS ORDERED: ONDANSETRON PF 4 MG/2 ML VIAL. IV PRN (20:45)
[2019-06-13] MEDS ORDERED: HYDROcodone/APAP 5/325MG 1 TAB TABLET PO PRN ×2 (20:45→23:45)
[2019-06-13] MEDS ORDERED: cefTRIAXone IV Push 1 GM VIAL. IVP ONE (21:00)
[2019-06-13] MEDS ORDERED: GABA-689 PO (22:07)
[2019-06-13] MEDS: fentaNYL PF VIAL 100 MCG/2 ML VIAL IVP PRN (22:26)
[2019-06-13 23:00] VITALS: BP 122/45
[2019-06-13] MEDS ORDERED: GABAPENTIN 400 MG CAPSULE. PO PRN (23:45)
[2019-06-13] MEDS ORDERED: OXYC10TA PO (23:59)
[2019-06-14] MEDS ORDERED: OXYC5TAB4 PO (00:02)
[2019-06-14] MEDS: oxyCODONE IR 5 MG TABLET PO PRN ×3 (00:56→16:55)
[2019-06-14] MEDS: fentaNYL PF VIAL 100 MCG/2 ML VIAL IVP PRN ×5 (02:23→20:10)
[2019-06-14 03:23] VITALS: BP 110/48
[2019-06-14 07:00] VITALS: BP 116/82
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
[2019-06-14] MEDS: DULoxetine HCL 30 MG CAPSULE.DR PO SCH (09:18)
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
[2019-06-14 11:15] VITALS: BP 137/63
--- NOTE | 2019-06-14 12:25 | RAD ---
TWO-VIEW RIGHT RIB DETAIL SERIES Clinical indications: Fall and right-sided chest pain. FINDINGS: There is a nondisplaced fracture of the lateral aspect of the right seventh rib. Small right-sided pleural effusion is seen. Mild right lung base atelectasis is evident. No pneumothorax is seen on the right side. IMPRESSION: Nondisplaced fracture of the lateral right seventh rib. Note-review of chest CT performed on June 13, 2019 demonstrates a nondisplaced fracture of the anterior lateral right 6th rib near the costal cartilage junction and the anterolateral aspect of the right seventh rib which is nondisplaced. Additional more subtle nondisplaced fractures of the lateral right eighth and ninth ribs are seen. Electronically signed by: Anderson Wadsworth MD (06/14/2019 12:22 PM) [facility]
[2019-06-14 14:52] VITALS: BP 134/60
[2019-06-14 19:45] VITALS: BP 117/39
[2019-06-15] MEDS: fentaNYL PF VIAL 100 MCG/2 ML VIAL IVP PRN ×4 (02:17→14:05)
[2019-06-15 03:59] VITALS: BP 118/54
[2019-06-15] MEDS: oxyCODONE IR 5 MG TABLET PO PRN (06:09)
[2019-06-15 07:23] VITALS: BP 122/38
[2019-06-15] MEDS: DULoxetine HCL 30 MG CAPSULE.DR PO SCH (08:42)
--- NOTE | 2019-06-15 09:30 | DS ---
DATE OF DISCHARGE: 06/15/2019 HOSPITAL COURSE: The patient is a 54-year-old female patient who came at this time with a complaint that she fell from stairs while carrying a large bag of old [employer] video tapes downstairs, she lost balance and had a fall from 12-15 stairs and does not remember what happened thereafter with possible loss of consciousness. She has had 2 areas of mild bleeding in her head and ecchymosis of the abdominal wall with abdominal pain and also right-sided chest pain. She was admitted for observation. She was seen by the surgical team and basically there was no indication for any surgical intervention. She had had a right-sided rib view, which showed that she has nondisplaced fracture of the lateral right 7th rib. She apparently has additional more subtle nondisplaced fracture of the lateral right 8th and 9th ribs seen. She has small right-sided pleural effusion, but there is no pneumothorax. The patient was started on a clear liquid diet, advanced to regular diet, and has been tolerating her food. She continued to have some pain that is well controlled with pain medication and a decision was made to discharge her home to continue on oral oxycodone. PHYSICAL EXAMINATION: GENERAL: When I saw her this morning, she was resting slightly propped up in bed, in no apparent respiratory distress. No pallor, jaundice, cyanosis, or thyromegaly. No jugular venous distention. No limb edema. VITAL SIGNS: Her heart rate was 69, blood pressure was 122/38, temperature was 97.7, respiratory rate was 16, and oxygen saturation was 96%, The rest of examination is stable, has not really changed. LABORATORY DATA: Showed a hemoglobin 10, hematocrit 30 with normal white cell count, and platelets. Her chemistry is stable with a BUN of 13, creatinine 0.8. The prothrombin time, INR, and aPTT are normal. Urinalysis was essentially unremarkable and toxic screen was positive for opiates, negative for other. DISCHARGE MEDICATIONS: The patient was discharged home to continue on her duloxetine, Cymbalta 120 mg once a day, gabapentin 400 mg daily, and oxycodone immediate release 5 mg every 6 hours. FINAL DISCHARGE DIAGNOSES: 1. Fall with resultant right 7th, 8th, and 9th rib fractures, nondisplaced. 2. Other medical problems include: A. Depression, anxiety. B. Rheumatoid arthritis. C. Carpal tunnel syndrome. MACIEJ YIP MD DR: JOVANNY/danyel JOB#: [id number] / [id number]
--- NOTE | 2019-06-15 09:31 | PDOC ---
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 06/15/19 0931: SURGICAL PROGRESS NOTE Subjective ongoing rib pain plans to go home Vital Signs Vital Signs Date Time Temp Pulse Resp B/P (MAP) Pulse Ox O2 Delivery O2 Flow Rate FiO2 06/15/19 08:43 96 Room Air 06/15/19 07:23 97.7 69 16 122/38 (66) 97.7 I&O Intake and Output 06/15/19 07:00 Intake Total 1000 ml Output Total 0 ml Balance 1000 ml Intake Oral 1000 ml Output Urine Total 0 ml General: Alert, Oriented X3, Cooperative Abdomen: Soft, Other (TTP right ribs, lap sites c/d/i) Labs Laboratory Tests Test 06/13/19 18:40 06/13/19 19:00 06/13/19 19:05 06/13/19 19:07 White Blood Count 8.7 x10^3/uL (4.0-11.0) Red Blood Count 3.59 x10^6/uL (3.50-5.40) Hemoglobin 10.2 g/dL (12.0-15.5) Hematocrit 30.8 % (36.0-47.0) Mean Corpuscular Volume 86 fL (79-100) Mean Corpuscular Hemoglobin 29 pg (25-35) Mean Corpuscular Hemoglobin Concent 33 g/dL (31-37) Red Cell Distribution Width 21.5 % (11.5-14.5) Platelet Count 285 x10^3/uL (140-400) Neutrophils (%) (Auto) 81 % (31-73) Lymphocytes (%) (Auto) 7 % (24-48) Monocytes (%) (Auto) 9 % (0-9) Eosinophils (%) (Auto) 3 % (0-3) Basophils (%) (Auto) 1 % (0-3) Neutrophils # (Auto) 7.0 x10^3/uL (1.8-7.7) Lymphocytes # (Auto) 0.6 x10^3/uL (1.0-4.8) Monocytes # (Auto) 0.8 x10^3/uL (0.0-1.1) Eosinophils # (Auto) 0.2 x10^3/uL (0.0-0.7) Basophils # (Auto) 0.0 x10^3/uL (0.0-0.2) Platelet Estimate Adequate (ADEQUATE) Polychromasia Slight Microcytosis Mod Macrocytosis Slight Prothrombin Time 13.4 SEC (11.7-14.0) Prothromb Time International Ratio 1.1 (0.8-1.1) Activated Partial Thromboplast Time 27 SEC (24-38) Sodium Level 138 mmol/L (136-145) Potassium Level 4.0 mmol/L (3.5-5.1) Chloride Level 100 mmol/L (98-107) Carbon Dioxide Level 29 mmol/L (21-32) Anion Gap 9 (6-14) Blood Urea Nitrogen 13 mg/dL (7-20) Creatinine 0.8 mg/dL (0.6-1.0) Estimated GFR (Cockcroft-Gault) 74.7 BUN/Creatinine Ratio 16 (6-20) Glucose Level 102 mg/dL (70-99) Calcium Level 8.5 mg/dL (8.5-10.1) Total Bilirubin 0.5 mg/dL (0.2-1.0) Aspartate Amino Transf (AST/SGOT) 34 U/L (15-37) Alanine Aminotransferase (ALT/SGPT) 56 U/L (14-59) Alkaline Phosphatase 85 U/L (46-116) Total Protein 6.5 g/dL (6.4-8.2) Albumin 3.2 g/dL (3.4-5.0) Albumin/Globulin Ratio 1.0 (1.0-1.7) Amylase Level 44 U/L (25-115) Lipase 99 U/L (73-393) Ethyl Alcohol Level < 10 mg/dL (0-10) Lactic Acid Level 1.6 mmol/L (0.4-2.0) Urine Collection Type Unknown Urine Color Yellow Urine Clarity Clear Urine pH 6.5 Urine Specific [place] 1.020 Urine Protein Negative mg/dL (NEG-TRACE) Urine Glucose (UA) Negative mg/dL (NEG) Urine Ketones (Stick) Negative mg/dL (NEG) Urine Blood Negative (NEG) Urine Nitrite Negative (NEG) Urine Bilirubin Negative (NEG) Urine Urobilinogen Dipstick 0.2 mg/dL (0.2 mg/dL) Urine Leukocyte Esterase Small (NEG) Urine RBC 1-2 /HPF (0-2) Urine WBC 5-10 /HPF (0-4) Urine Squamous Epithelial Cells Few /LPF Urine Bacteria Few /HPF (0-FEW) Urine Opiates Screen Pos (NEG) Urine Methadone Screen Neg (NEG) Urine Barbiturates Neg (NEG) Urine Phencyclidine Screen Neg (NEG) Urine Amphetamine/Methamphetamine Neg (NEG) Urine Benzodiazepines Screen Neg (NEG) Urine Cocaine Screen Neg (NEG) Urine Cannabinoids Screen Neg (NEG) Urine Ethyl Alcohol Neg (NEG) Bedside Urine HCG, Qualitative Hcg negative (Negative) Problem List Problems Medical Problems: (1) Injury of abdominal wall Status: Acute Assessment/Plan FU with Dr Royal 1 week MEL REYES MD 06/15/19 1416: SURGICAL PROGRESS NOTE Assessment/Plan No acute changes agree with [facility] assessment and plan STU DOTSON APRN Jun 15, 2019 09:31 MEL REYES MD Jun 15, 2019 14:16
[2019-06-15 11:16] VITALS: BP 108/54
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
--- NOTE | 2019-06-15 14:48 | NUR ---
Discharge Note: [facility] Discharge instructions and discharge home medications reviewed with Patient and a copy given. All questions have been answered and understanding verbalized. The PAT team was consulted. The PAT team cleared the patient for discharge with resources for behavioral health. The following instructions and handouts were given: follow-up instructions were given . Discontinued lines and drains: The catheter tip was intact. The patient tolerated well. Patient discharged to home with self-care. The patient will utilize [facility] [employer] for transportation home.
[2019-06-15 15:00] VITALS: BP 128/46
== END 2019-06-15 15:30 | disposition home or self-care (01) | DRG 184 ==
LOC: ER 18:29 → 6 SOUTH 20:25 → OBSVTOIN 06-14 20:02
PROVIDERS: ADMIT Internal Medicine; ATTEND Internal Medicine
DX: S22.41XA Multiple fractures of ribs, right side, initial encounter for closed fracture (principal); J91.8 Pleural effusion in other conditions classified elsewhere; F41.9 Anxiety disorder, unspecified; W10.9XXA Fall (on) (from) unspecified stairs and steps, initial encounter; M53.80 Other specified dorsopathies, site unspecified; M19.90 Unspecified osteoarthritis, unspecified site; S39.91XA Unspecified injury of abdomen, initial encounter; M06.9 Rheumatoid arthritis, unspecified; F31.9 Bipolar disorder, unspecified; G56.00 Carpal tunnel syndrome, unspecified upper limb; Z98.82 Breast implant status; Z98.891 History of uterine scar from previous surgery; Z88.1 Allergy status to other antibiotic agents; Z88.5 Allergy status to narcotic agent; Y93.89 Activity, other specified; Y92.89 Other specified places as the place of occurrence of the external cause; Y99.8 Other external cause status
CPT/HCPCS: 36415; 70450; 71100; 71260; 72125; 74177; 80053; 80307; 81001; 81025; 82150; 83605; 83690; 85025; 85610; 85730; 86850; 86900; 86901; 87040; 87086; G0378; G0379; G0480; J0696; J2405; J3010; J7030; Q9967

== ENCOUNTER 2019-09-22 20:10 | Emergency (ER) | payer BC ==
[~2019-09-22] VITALS: Ht 165.1 cm; Wt 45.4 kg
[~2019-09-22 20:10] MED LIST changes: +GABA-689 PO; +OXYC10TA PO; +OXYC5TAB4 PO
[2019-09-22] MEDS ORDERED: IV NORMAL SALINE 1000ML BAG 1,000 ML IV SCH (20:41)
[2019-09-22 21:06] LABS: BASO % 1 % (0-3); EOS % 0 % (0-3); HEMATOCRIT 35.7 % (36.0-47.0); HEMOGLOBIN 12.4 g/dL (12.0-15.5); LYMPH # 0.8 x10^3/uL (1.0-4.8); LYMPH % 11 % (24-48); MEAN CORPUSCULAR HEMOGLOBIN 29 pg (25-35); MEAN CORPUSCULAR HGB CONC 35 g/dL (31-37); MEAN CORPUSCULAR VOLUME 82 fL (79-100); MONO # 0.3 x10^3/uL (0.0-1.1); MONO % 5 % (0-9); NEUT # 5.5 x10^3/uL (1.8-7.7); NEUT % 83 % (31-73); PLATELET COUNT 205 x10^3/uL (140-400); RED BLOOD COUNT 4.36 x10^6/uL (3.50-5.40); RED CELL DISTRIBUTION WIDTH 20.3 % (11.5-14.5); WHITE BLOOD COUNT 6.7 x10^3/uL (4.0-11.0)
[2019-09-22 21:09] LABS: BILIRUBIN,URINE SMALL (NEG); CLARITY,URINE CLEAR; COLOR,URINE YELLOW; NITRITE,URINE NEGATIVE (NEG); PROTEIN,URINE 30 mg/dL (NEG-TRACE)
[2019-09-22 21:14] LABS: BARBITURATES NEG (NEG); BENZODIAZEPINES NEG (NEG); CANNABINOIDS NEG (NEG); COCAINE NEG (NEG); METHADONE NEG (NEG); OPIATES NEG (NEG); PHENCYCLIDINE NEG (NEG)
[2019-09-22 21:15] LABS: CALCIUM 9.4 mg/dL (8.5-10.1); GFR 57.8; POTASSIUM 3.6 mmol/L (3.5-5.1)
[2019-09-22 21:15] LABS: AMPHETAMINE/METHAMPHETAMINE NEG (NEG)
[2019-09-22 21:18] LABS: HYALINE CASTS, URINE FEW /HPF; SQUAMOUS EPITHELIAL CELL,UR MOD /LPF
[2019-09-22 21:19] LABS: BACTERIA,URINE 0 /HPF (0-FEW); RBC,URINE 0 /HPF (0-2); WBC,URINE OCC /HPF (0-4)
[2019-09-22 21:21] LABS: ALBUMIN 3.9 g/dL (3.4-5.0); MAGNESIUM 1.8 mg/dL (1.8-2.4); TOTAL BILIRUBIN 0.9 mg/dL (0.2-1.0); TOTAL PROTEIN 7.7 g/dL (6.4-8.2)
[2019-09-22 21:27] LABS: PLT ESTIMATE ADEQUATE (ADEQUATE)
[2019-09-22 21:28] LABS: ANISOCYTOSIS SLIGHT
--- NOTE | 2019-09-22 21:46 | PHYS DOC ---
Past Medical History Past Medical History: Anxiety, Arthritis, Depression, Other Additional Past Medical Histor: carpal tunnel Past Surgical History: Oophorectomy, Other Additional Past Surgical Histo: laproscopy for liver lac, uterine ablation, rt oopherectomy Smoking Status: Never Smoker Alcohol Use: Occasionally Additional Information: 2 beers socially General Adult EDM: Chief Complaint: WEAKNESS/GENERALIZED HPI: HPI: Patient is a 54 year old female who presents with report that she feels like she is getting very dehydrated. Patient states that she has not been taking care of herself very well over the last few days, stating that she has been under a lot of stress. Patient states that she is going through divorce right now after 34 years of marriage. Patient denies any suicidal or homicidal ideations. She states that she just feels like she needs some fluids. [] Review of Systems: Review of Systems: Constitutional: Denies fever or chills. [] Respiratory: Denies cough or shortness of breath. [] Cardiovascular: Denies chest pain or edema. [] GI: Denies abdominal pain, nausea, vomiting or diarrhea. [] Neurologic: Denies headache, focal weakness or sensory changes. [] Psychiatric: Reports anxiety. [] Heart Score: Risk Factors: Risk Factors: DM, Current or recent (<one month) smoker, HTN, HLP, family history of CAD, obesity. Risk Scores: Score 0 - 3: 2.5% MACE over next 6 weeks - Discharge Home Score 4 - 6: 20.3% MACE over next 6 weeks - Admit for Clinical Observation Score 7 - 10: 72.7% MACE over next 6 weeks - Early Invasive Strategies Current Medications: Current Medications Medications (Trade) Dose Ordered Sig/Betito Start Time Stop Time Status Last Admin Dose Admin Sodium Chloride 1,000 ml @ 1,000 mls/hr Q1H 09/22/19 20:41 09/22/19 21:40 DC 09/22/19 20:57 1,000 MLS/HR Allergies: Allergies: Allergies Coded Allergies Type Severity Reaction Last Updated Verified ciprofloxacin Allergy Severe 06/09/19 Yes hydrocodone Allergy Intermediate itching, "invisible rash" 06/13/19 Yes Physical Exam: PE: Constitutional: Well developed, well nourished, no acute distress, non-toxic appearance. [] HENT: Normocephalic, atraumatic, bilateral external ears normal, oropharynx moist, no oral exudates, nose normal. [] Eyes: PERRLA, EOMI, conjunctiva normal, no discharge. [] Neck: Normal range of motion, no tenderness, supple, no stridor. [] Cardiovascular: Regular rate and rhythm [] Lungs & Thorax: Bilateral breath sounds clear to auscultation [] Abdomen: Bowel sounds normal, soft, no tenderness. [] Skin: Warm, dry, no erythema, no rash. [] Extremities: No tenderness, no cyanosis, no clubbing, ROM intact, no edema. [] Neurologic: Alert and oriented X 3, no focal deficits noted. [] Current Patient Data: Labs: Laboratory Tests Test 09/22/19 20:30 09/22/19 20:50 Urine Collection Type Unknown Urine Color Yellow Urine Clarity Clear Urine pH 7.0 (<5.0-8.0) Urine Specific Partridge 1.010 (1.000-1.030) Urine Protein 30 mg/dL (NEG-TRACE) Urine Glucose (UA) Negative mg/dL (NEG) Urine Ketones (Stick) 15 mg/dL (NEG) Urine Blood Negative (NEG) Urine Nitrite Negative (NEG) Urine Bilirubin Small (NEG) Urine Urobilinogen Dipstick 1.0 mg/dL (0.2 mg/dL) Urine Leukocyte Esterase Trace (NEG) Urine RBC 0 /HPF (0-2) Urine WBC Occ /HPF (0-4) Urine Squamous Epithelial Cells Mod /LPF Urine Bacteria 0 /HPF (0-FEW) Urine Hyaline Casts Few /HPF Urine Mucus Mod /LPF Urine Opiates Screen Neg (NEG) Urine Methadone Screen Neg (NEG) Urine Barbiturates Neg (NEG) Urine Phencyclidine Screen Neg (NEG) Urine Amphetamine/Methamphetamine Neg (NEG) Urine Benzodiazepines Screen Neg (NEG) Urine Cocaine Screen Neg (NEG) Urine Cannabinoids Screen Neg (NEG) Urine Ethyl Alcohol Neg (NEG) White Blood Count 6.7 x10^3/uL (4.0-11.0) Red Blood Count 4.36 x10^6/uL (3.50-5.40) Hemoglobin 12.4 g/dL (12.0-15.5) Hematocrit 35.7 % (36.0-47.0) L Mean Corpuscular Volume 82 fL (79-100) Mean Corpuscular Hemoglobin 29 pg (25-35) Mean Corpuscular Hemoglobin Concent 35 g/dL (31-37) Red Cell Distribution Width 20.3 % (11.5-14.5) H Platelet Count 205 x10^3/uL (140-400) Neutrophils (%) (Auto) 83 % (31-73) H Lymphocytes (%) (Auto) 11 % (24-48) L Monocytes (%) (Auto) 5 % (0-9) Eosinophils (%) (Auto) 0 % (0-3) Basophils (%) (Auto) 1 % (0-3) Neutrophils # (Auto) 5.5 x10^3/uL (1.8-7.7) Lymphocytes # (Auto) 0.8 x10^3/uL (1.0-4.8) L Monocytes # (Auto) 0.3 x10^3/uL (0.0-1.1) Eosinophils # (Auto) 0.0 x10^3/uL (0.0-0.7) Basophils # (Auto) 0.0 x10^3/uL (0.0-0.2) Platelet Estimate Adequate (ADEQUATE) Anisocytosis Slight Sodium Level 135 mmol/L (136-145) L Potassium Level 3.6 mmol/L (3.5-5.1) Chloride Level 94 mmol/L (98-107) L Carbon Dioxide Level 29 mmol/L (21-32) Anion Gap 12 (6-14) Blood Urea Nitrogen 13 mg/dL (7-20) Creatinine 1.0 mg/dL (0.6-1.0) Estimated GFR (Cockcroft-Gault) 57.8 BUN/Creatinine Ratio 13 (6-20) Glucose Level 162 mg/dL (70-99) H Calcium Level 9.4 mg/dL (8.5-10.1) Magnesium Level 1.8 mg/dL (1.8-2.4) Total Bilirubin 0.9 mg/dL (0.2-1.0) Aspartate Amino Transferase (AST) 29 U/L (15-37) Alanine Aminotransferase (ALT) 23 U/L (14-59) Alkaline Phosphatase 112 U/L (46-116) Total Protein 7.7 g/dL (6.4-8.2) Albumin 3.9 g/dL (3.4-5.0) Albumin/Globulin Ratio 1.0 (1.0-1.7) Thyroid Stimulating Hormone (TSH) 0.697 uIU/mL (0.358-3.74) Ethyl Alcohol Level < 10 mg/dL (0-10) Laboratory Tests 09/22/19 20:50 Laboratory Tests 09/22/19 20:50 Vital Signs: Vital Signs Date Time Temp Pulse Resp B/P (MAP) Pulse Ox O2 Delivery O2 Flow Rate FiO2 09/22/19 20:26 98.3 105 20 183/77 (112) Room Air 98.3 EKG: EKG: [] Radiology/Procedures: Radiology/Procedures: [] Course & Med Decision Making: Course & Med Decision Making Pertinent Labs and Imaging studies reviewed. (See chart for details) [] Dragon Disclaimer: Dragon Disclaimer: This electronic medical record was generated, in whole or in part, using a voice recognition dictation system. Departure Departure Impression: Primary Impression: Dehydration Additional Impression: Situational anxiety Disposition: 01 HOME, SELF-CARE Condition: STABLE Referrals: NO PCP (PCP) Patient Instructions: Anxiety and Panic Attacks, Dehydration, Adult ROBINSON LAWSON Jr. DO Sep 22, 2019 21:46
[2019-09-22 22:10] VITALS: BP 154/81
== END 2019-09-22 22:04 | disposition home or self-care (01) ==
LOC: ER 20:10
DX: E86.0 Dehydration (principal); F41.9 Anxiety disorder, unspecified; F32.9 Major depressive disorder, single episode, unspecified; Z88.1 Allergy status to other antibiotic agents; Z88.5 Allergy status to narcotic agent
CPT/HCPCS: 36415; 80053; 80307; 81001; 83735; 84443; 85025; 87086; 96360; 99285; G0480; J7030